=== PATIENT | male | born 1960 | race Caucasian/White ===

== ENCOUNTER 2023-01-21 07:03 | Emergency (ER) | payer OTHER, SELFPAY ==
[2023-01-21 07:04] VITALS: BP 141/82; PULSE 79; RESP 12; TEMP 36.1; O2SAT 97; BMI 29.5
--- NOTE | 2023-01-21 07:36 | RAD_ITS ---
STUDY: X-RAY CHEST REASON FOR EXAM: Male, 62 years old. Lightheadedness. Dizziness. TECHNIQUE: PA and lateral views of the chest. COMPARISON: Comparison is made with prior study dated June 13, 2016. FINDINGS: Hyperinflation. Stable increased markings in the lingular segment of the left upper lobe suggestive of scarring. There is no demonstrated pleural abnormality. Normal size heart. Normal mediastinum and jay. Normal visualized pulmonary arteries. Normal visualized aortic arch and descending thoracic aorta. Normal visualized thoracic spine. Normal visualized ribs, clavicles, and shoulders. There is no demonstrated abnormality of the visualized soft tissue structures of the upper abdomen. RAD/Chest PA and Lateral IMPRESSION: Hyperinflation. Stable examination. Electronically Signed: Roge Kennedy MD at 8:44 EDT ,
--- NOTE | 2023-01-21 07:36 | EKG12_ITS ---
Test Reason : DIZZINESS Blood Pressure : / mmHG Vent. Rate : 072 BPM Atrial Rate : 072 BPM P-R Int : 170 ms QRS Dur : 108 ms QT Int : 396 ms P-R-T Axes : 056 037 035 degrees QTc Int : 433 ms Normal sinus rhythm with sinus arrhythmia Normal ECG Confirmed by MILE SUN, FRANCINE ([id number]), editor producer AMBERLY DAVEY ([id number]) on 01/23/2023 8:50:36 AM Referred By: Confirmed By:JULI TREADWELL MD
--- NOTE | 2023-01-21 07:37 | EX.ED.DYSGE1 ---
HPI History of Present Illness Chief Complaint: Dizziness Informant: patient and spouse/S.O. Narrative Narrative: Patient is a 62-year-old male with history of tobacco use, prior stroke secondary to complication of with carotid endarterectomy (no residual deficits but did have left leg numbness) presenting with lightheadedness. Patient states he was at work and walking on the floor when he felt dizzy and lightheaded. He states he felt disoriented. He tried to keep walking eventually went to his office. He states when he sat down he could not remember what he was trying to do. He also was at 1 point his head just felt hot. He states he felt like he was going to pass out. He states he did not eat breakfast this morning but did have some water. He notes he had not gotten to his morning coffee. It is typical for him to not have breakfast. Denies any sensation of feeling room spinning, vertigo or vision changes. Does report that he felt a little off balance however. Denies any associated numbness, tingling, vision changes or speech changes. Notes he does have an intermittent headache. States it radiates from his neck on the right side goes up to his scalp. He does tell me that over the past few weeks he has been having bilateral hip pain and is having to take 600 mg ibuprofen every night just to fall asleep. His notes that he has been under a lot of stress lately. She also states that his A1c was borderline and she is worried about his blood sugar. Patient denies any chest pain, shortness breath or difficulty breathing. Denies any recent medication changes. No other complaints or concerns at this time. [facility] Medical History (Updated 01/21/23 @ 11:[address] Melissa Lopez, ) Diabetes Hypertension Stroke/cerebrovascular accident Home Medications amoxicillin 500 mg capsule 875 mg PO BID 06/13/16 [History Last Taken 06/13/16] aspirin 81 mg tablet,delayed release (Adult Aspirin Regimen) 81 mg PO DAILY 01/21/23 [History Last Taken Unknown] bupropion HCl 150 mg tablet,12 hr sustained-release (Wellbutrin SR) 150 mg PO BID 01/21/23 [History Last Taken Unknown] cephalexin 500 mg capsule 500 mg PO Q12 #14 CAPSULES 01/21/23 [Rx Last Taken Unknown] fluticasone propionate 50 mcg/actuation nasal spray,suspension 1 spray intranasal BID PRN nasal congestion 01/21/23 [History Last Taken Unknown] lisinopril 2.5 mg tablet 2.5 mg PO DAILY 01/21/23 [History Last Taken Unknown] metformin 500 mg tablet 500 mg PO BID 01/21/23 [History Last Taken Unknown] rosuvastatin 10 mg tablet (Crestor) 10 mg PO DAILY 01/21/23 [History Last Taken Unknown] sildenafil 100 mg tablet 100 mg PO DAILY PRN SEE DR 01/21/23 [History Last Taken Unknown] tamsulosin 0.4 mg capsule (Flomax) 0.4 mg PO DAILY #30 caps 01/21/23 [Rx Last Taken Unknown] Allergy/AdvReac Type Severity Reaction Status Date / Time acetaminophen [From Percocet] Allergy Severe Hives Verified 01/21/23 07:07 oxycodone [From Percocet] Allergy Severe Hives Verified 01/21/23 07:07 Social History Smoking Status: Current every day smoker tobacco type: cigarettes ROS ROS ED Constitutional Constitutional ED: Denies chills, fever(s) or sweats Eyes Eyes: Denies blurry vision, change in vision or diplopia ENT ENT ED: Reports other Details: wears hearing aids ; Denies rhinorrhea or sore throat Cardiovascular Cardiovascular: Denies chest pain, palpitations or racing heartbeat Respiratory/Chest Respiratory/Chest: Denies cough or dyspnea Gastrointestinal Gastrointestinal: Denies abdominal pain, nausea or vomiting Genitourinary Genitourinary ED: Denies dysuria Musculoskeletal Musculoskeletal: Reports other Details: hip pain x weeks ; Denies arthralgias Integumentary Denies rash Neurologic Neurologic: Reports headache(s); Denies paresthesias or weakness Psychiatric Psychiatric: Denies anxiety Hematologic/Lymphatic Hematologic/Lymphatic: Denies easy bleeding or easy bruising EXAM Physical Exam Const Vital Signs: 01/21/23 07:04 01/21/23 07:59 01/21/23 08:12 Temperature 97 F L Temperature Source Temporal Pulse Rate 79 Pulse Rate [Lying] 75 Pulse Rate [Sitting (for 1 minute prior to obtaining)] 77 Pulse Rate [Standing (for 1 minute prior to obtaining)] 78 Respiratory Rate 12 Respiratory Effort Normal Non-Labored Respiratory Pattern Normal Blood Pressure 141/82 H Blood Pressure [Lying] 127/88 H Blood Pressure [Sitting (for 1 minute prior to obtaining)] 144/98 H Blood Pressure [Standing (for 1 minute prior to obtaining)] 125/91 H Blood Pressure Mean 101 Blood Pressure Mean [Lying] 101 Blood Pressure Mean [Sitting (for 1 minute prior to obtaining)] 113 Blood Pressure Mean [Standing (for 1 minute prior to obtaining)] 102 Pulse Ox 97 Oxygen Delivery Method Room Air 01/21/23 09:03 Temperature Temperature Source Pulse Rate 62 Pulse Rate [Lying] Pulse Rate [Sitting (for 1 minute prior to obtaining)] Pulse Rate [Standing (for 1 minute prior to obtaining)] Respiratory Rate 17 Respiratory Effort Respiratory Pattern Blood Pressure 142/90 H Blood Pressure [Lying] Blood Pressure [Sitting (for 1 minute prior to obtaining)] Blood Pressure [Standing (for 1 minute prior to obtaining)] Blood Pressure Mean 107 Blood Pressure Mean [Lying] Blood Pressure Mean [Sitting (for 1 minute prior to obtaining)] Blood Pressure Mean [Standing (for 1 minute prior to obtaining)] Pulse Ox 94 Oxygen Delivery Method Room Air Positive well nourished and well developed General Appearance ED: well developed HEENT Reports moist mucous membranes Negative for trauma Eyes PERRL and EOMs intact bilaterally Eyes Narrative: No nystagmus Neck supple and no JVD Neck Narrative: No midline tenderness, normal range of motion Chest Wall inspection of chest normal and palpation of chest normal Resp normal respiratory effort and clear to auscultation bilaterally Cardio regular rate, regular rhythm and no murmurs GI normal to inspection, nondistended, normoactive bowel sounds and non-tender Extremity General Extremety ED: Negative for edema or tenderness General Extremity: Negative for edema Neuro oriented x3, CN's II-XII intact bilaterally and no sensory deficits noted Neuro Narrative: Normal coordination. NIH equals 0 Sensorium / Orientation: alert Motor Exam: strength 5/5 throughout Psych mental status grossly normal Skin no rashes or lesions noted MDM MDM MDM Narrative Medical decision making narrative: Patient is evaluated for a sensation of lightheadedness and feeling disoriented that started today. He is no longer feeling lightheaded. Denies any vertiginous symptoms. Has no nystagmus or ataxia. I do not think this is a vertiginous process (either central or peripheral). He has a normal neurologic exam and I do not think there is any type of stroke going on. Do not think he requires any neuroimaging. Concern Elliot for arrhythmia, electro abnormality, infection or cardiac arrhythmia that could be causing the symptoms. His blood pressure is normal in the ER. His orthostatics are normal. His CBC is largely normal. BMP has some mild hyperglycemia consistent with the patient's history of diabetes however there is no signs of DKA or HHNK. Is a normal anion gap. Kidney function is normal. High since he troponin is 4x2 and EKG is nonischemic. I do not think there is any ACS or other more severe cardiac process going on. Patient's urinalysis does show 25-50 white blood cells as well as 2+ bacteria. While he denies dysuria he notes that he has been having ongoing urinary frequency. Does not see urology. Possibly could be developing UTI. On repeat evaluation he does tell me that he is just feeling achy and like he might be coming down with something. Of note his urinalysis did show 150 occult blood with no red blood cells. CK is normal however so this does not appear to be rhabdomyolysis. Patient will be started on Keflex for UTI and culture sent. In addition postvoid urine shows 216 cc. I suspect he has a component of chronic urinary retention/BPH. He will be started on Flomax. Counseled on symptom of orthostatic hypotension with this. Was given a referral to urology. I did discuss holding sildenafil with the Flomax until cleared by urology or his PCP Patient is encouraged to follow-up with PCP for further outpatient work-up for this episode of lightheadedness today from a cardiac standpoint and he is also given referral for orthopedics for this ongoing bilateral hip pain. Lab Data Attestation: I reviewed the patient's lab results. Labs: Laboratory Results - last 24 hr 01/21/23 01/21/23 01/21/23 07:56 08:09 10:05 WBC 8.5 RBC 4.57 L Hgb 14.5 Hct 44.4 MCV 97.2 H MCH 31.7 MCHC 32.7 RDW Std Deviation 51.3 H RDW Coeff of Yves 14.4 Plt Count 200 MPV 9.5 Immature Gran % (Auto) 0.200 Neut % (Auto) 54.4 Lymph % (Auto) 34.0 [place] % (Auto) 7.8 Eos % (Auto) 3.2 Baso % (Auto) 0.4 Absolute Neuts (auto) 4.6 Absolute Lymphs (auto) 2.87 Nucleated RBC % 0 Sodium 141 Potassium 4.4 Chloride 111 H Carbon Dioxide 28.0 Anion Gap 2 L BUN 23 H Creatinine 1.02 Estim Creat Clear Calc 77.92 Est GFR (MDRD) Af Amer 95 Est GFR (MDRD) Non-Af 78 BUN/Creatinine Ratio 22.5 H Glucose 130 H Calcium 8.6 Total Creatine Kinase 140 Troponin I High Sens 4 4 Urine Color Yellow Urine Clarity Clear Urine pH 5.0 Ur Specific [place] 1.020 Urine Protein 30 H Urine Glucose (UA) Normal Urine Ketones Negative Urine Occult Blood 150 H Urine Nitrite Negative Urine Bilirubin Negative Urine Urobilinogen Normal Ur Leukocyte Esterase Negative Urine RBC 0 SEEN Urine WBC 25-50 SEEN Ur Squamous Epith Cells 0 SEEN Urine Bacteria 2+ Urine Mucus 0 SEEN Radiography Diagnostic Testing: Clinical Impression(s) from Imaging Studies Chest X-Ray 01/21/23 07:36 IMPRESSION: Hyperinflation. Stable examination. Electronically Signed: Roge Kennedy MD at 8:44 EDT Reading Location ID and State: [facility] / [place] , Service support , Rhythm Strip Rhythm Strip: Sinus Rhythm Rate: 72 Ectopy: None EKG Initial EKG: Attestation: I personally reviewed and interpreted this EKG as follows: Interpretation: Sinus Rhythm Comments: Normal sinus rhythm at a rate of 72 bpm with sinus arrhythmia Normal axis Normal intervals Normal ST segments Discharge Plan Triage Chief Complaint: Dizziness ED Provider: Melissa Lopez Dx/Rx/DC Orders Clinical Impression: Lightheaded, Urinary retention, Acute UTI Instructions: Urinary Tract Infections in Men, ED Dizziness, Uncertain Cause, ED Urinary Retention, Male Prescriptions: New tamsulosin [Flomax] 0.4 mg capsule 0.4 mg PO DAILY Qty: 30 0RF cephalexin 500 mg capsule 500 mg PO Q12 Qty: 14 0RF No Action amoxicillin 500 MG capsule 875 mg PO BID Patient Comments: rosuvastatin [Crestor] 10 mg tablet 10 mg PO DAILY sildenafil 100 mg tablet 100 mg PO DAILY PRN (Reason: SEE DR) Rx Instructions: administer 30 minutes to 4 hours before activity metformin 500 mg tablet 500 mg PO BID bupropion HCl [Wellbutrin SR] 150 mg tablet sustained-release 12 hr 150 mg PO BID lisinopril 2.5 mg tablet 2.5 mg PO DAILY fluticasone propionate 50 mcg/actuation spray,suspension 1 spray intranasal BID PRN (Reason: nasal congestion) Rx Instructions: administer into each nostril aspirin [Adult Aspirin Regimen] 81 mg tablet,delayed release (DR/EC) 81 mg PO DAILY Primary Care Provider: Patrick Diane Referrals: Ever Mayfield DO [Med Staff - Active Staff] - As Needed Boston Carpio MD [Non-Staff] - Kemal Arce MD [Med Staff - Active Staff] - As soon as possible Activity Restrictions/Additional Instructions: Your neurologic exam was normal today. I that I do not think this episode was associate with a stroke. You were found to have findings of UTI as well as urinary retention, likely from enlarged prostate. You have been started on tamsulosin (Flomax) to help with this as well as antibiotics. Please do not take your sildenafil until cleared by urology or your PCP while taking the Flomax. Return to the emergency room if you have a progression or worsening of your symptoms or further concerns. Disposition Disposition: Home, Self Care
[2023-01-21 07:59] VITALS: BP 125/91; BP 127/88; BP 144/98; PULSE 75; PULSE 77; PULSE 78
[2023-01-21 08:10] LABS: Absolute Lymphocyte Count 2.87 X10^3/uL (0.83-4.51); Absolute Neutrophil Count 4.6 X10^3/uL (2.0-7.7); Basophil# 0.03 X10^3/uL; Basophil% 0.4 % (0-1); Eosinophil# 0.27 X10^3/uL; Eosinophils% 3.2 % (0-5); Hematocrit 44.4 % (40-54); Hemoglobin 14.5 g/dL (13.0-16.5); Lymphocyte # 2.87 X10^3/ul (0.83-4.51); Mean Corp Hgb Conc 32.7 g/dL (32-36); Mean Corpuscular Hgb 31.7 pg (27.0-32.0); Mean Corpuscular Volume 97.2 fL (80-94); Mean Platelet Vol. 9.5 fl (6.2-12.0); Monocyte# 0.66 X10^3/uL; Monocyte% 7.8 % (0-10); NRBC Flagged by Analyzer 0 % (0-5); Neutrophil % 54.4 % (47-70); Platelet Count 200 K/mm3 (150-450); RBC Distribution Width CV 14.4 % (11.6-14.6); RBC Distribution Width SD 51.3 fl (35.1-43.9); Red Blood Count 4.57 M/mm3 (4.6-6.2); White Blood Count 8.5 K/mm3 (4.4-11.0)
[2023-01-21 08:19] LABS: Mucous, Urine 0 SEEN /hpf (<or=2+); Red Blood Cells-Urine 0 SEEN /hpf (0-5); Squamous Epithelial Cells - UA 0 SEEN /hpf (0-5)
[2023-01-21 08:23] LABS: Color, Urine Yellow (Yellow); Glucose, Dipstick Normal (Normal); Ketone-Dipstick Negative (Negative); Leukocyte Esterase-Dipstick Negative /ul (Negative); Nitrite-Dipstick Negative (Negative); Occult Blood-Urine 150 /ul (Negative); Protein-Dipstick 30 mg/dl (Negative); Urine Bilirubin Dipstick Negative (Negative); Urine Clarity Clear (Clear); Urine Urobilinogen Normal (Normal)
[2023-01-21 08:30] LABS: Anion Gap 2 (5-15); BUN 23 mg/dL (7-18); BUN/Creat Ratio 22.5 RATIO (10-20); Calcium,Total 8.6 mg/dL (8.5-10.1); Chloride 111 mmol/L (98-107); Creatinine, Serum 1.02 mg/dL (0.70-1.30); EST Glomerular Filtration Rate 78 mL/min (>60); Est Glom Filt Rate - Afr Amer 95 mL/min (>60); Estimated Creatinine Clearance 77.92 ml/min; Glucose 130 mg/dL (74-106); Potassium 4.4 mmol/L (3.5-5.1); Sodium Level 141 mmol/L (136-145); Troponin-I HS (w/2H Reflex) 4 pg/mL (3.0-78.0)
[2023-01-21 08:36] LABS: Bacteria 2+ /hpf (None Seen); White Blood Cells 25-50 SEEN /hpf (0-5)
[2023-01-21 09:03] VITALS: BP 142/90; PULSE 62; RESP 17; O2SAT 94
[2023-01-21 09:04] LABS: CPK Total, Creatine Kinase 140 U/L (39-308)
[2023-01-21 10:08] LABS: Reflex Troponin-HS? (from REC) Y
[2023-01-21 10:42] LABS: Troponin-I HS 4 pg/mL (3.0-78.0)
[2023-01-21] MEDS: Tamsulosin HCl 0.4 MG Capsule PO (11:33)
[2023-01-21] MEDS: Cephalexin 250 MG Capsule 500 MG PO (11:33)
== END 2023-01-21 11:36 | disposition home or self-care (01) ==
PROVIDERS: Emergency Provider Emergency Medicine; PCP Family Medicine; Visit Provider Emergency Medicine
DX: R42 Dizziness and giddiness (principal); E11.65 Type 2 diabetes mellitus with hyperglycemia; N39.0 Urinary tract infection, site not specified; R33.9 Retention of urine, unspecified; I10 Essential (primary) hypertension; F17.210 Nicotine dependence, cigarettes, uncomplicated; Z79.82 Long term (current) use of aspirin; Z79.84 Long term (current) use of oral hypoglycemic drugs; Z79.899 Other long term (current) drug therapy; Z86.73 Personal history of transient ischemic attack (TIA), and cerebral infarction without residual deficits
CPT/HCPCS: 71046; 80048; 81001; 82550; 84484; 85025; 87086; 93005; 99285; A4216